=== PATIENT | female | born 1970 | race Caucasian/White ===

== ENCOUNTER 2016-11-23 11:31 | Emergency (ER) | payer BC ==
--- NOTE | 2016-11-23 21:33 | ER ---
ADMIT: 11/23/2016 RM/LOC: ER [facility] MR#: [id number] [address] [id number] TAMMI MENDEZ [address] [address] Emergency Room Report SEX: F AGE: 46 : 1970 DATE: 11/23/2016 ADDENDUM: CHIEF COMPLAINT: Left ankle pain. HISTORY OF PRESENT ILLNESS: This is a 46-year-old female who has a known bad ankle. 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 An x-ray was done, is negative for fracture. CLINICAL IMPRESSION: Left ankle sprain. DISPOSITION: Having her ice, use the air splint. Activity as tolerated. Follow up with primary care physician if symptoms worsen. CIPRIANO Harrington / Franklyn Farley MD / ginger JOB #: [id number] CC: Franklyn Farley MD, Attending Physician
== END 2016-11-23 12:50 | disposition home or self-care (01) ==
LOC: ER 11:31
DX: S93.492A Sprain of other ligament of left ankle, initial encounter (principal); Z88.0 Allergy status to penicillin; R00.1 Bradycardia, unspecified; Z79.899 Other long term (current) drug therapy; X50.1XXA Overexertion from prolonged static or awkward postures, initial encounter